=== PATIENT | female | born 1955 | race Caucasian/White ===

== ENCOUNTER → 2019-05-11 | Outpatient (CLI) | payer MEDICARE ==
--- NOTE | 2019-05-11 10:51 | Diagnostic Imaging Report ---
EXAMINATION: HIP RIGHT 2-3 VW (+/- PELVIS) INDICATION: Osteoarthritis, hip pain COMPARISON: None FINDINGS: AP view of the pelvis and AP and frog-leg views of the right hip demonstrate no acute fracture or dislocation. Alignment is anatomic. Moderate to severe degenerative changes of the right hip joint with joint space narrowing and osteophyte formation. Mild degenerative changes of the left hip joint. Nonobstructive bowel gas pattern. No free air. Phleboliths in the pelvis. Bilateral common iliac artery stents. IMPRESSION: No acute osseous injury. Moderate to severe degenerative changes of the right hip joint. Mild left hip degenerative changes. Signed by: Juan Will MD on 05/11/2019 10:47 AM
== END ==
LOC: RAD 10:06
PROVIDERS: ATTEND Internal Medicine
DX: M16.11 Unilateral primary osteoarthritis, right hip (principal)